=== PATIENT | female | born 1975 | race Caucasian/White ===

== ENCOUNTER 2018-04-11 20:13 | Emergency (ER) | payer MEDICAID ==
[~2018-04-11] VITALS: Ht 160 cm; Wt 89.8 kg
[2018-04-11 20:17] VITALS: Ht 160 cm; Wt 89.8 kg
[2018-04-11 22:00] VITALS: BP 133/90
== END 2018-04-11 22:00 | disposition home or self-care (01) ==
LOC: ED 20:13
DX: S61.216A Laceration without foreign body of right little finger without damage to nail, initial encounter (principal); I10 Essential (primary) hypertension; Z88.1 Allergy status to other antibiotic agents; W54.0XXA Bitten by dog, initial encounter; Y93.89 Activity, other specified; Y92.89 Other specified places as the place of occurrence of the external cause; Y99.8 Other external cause status
CPT/HCPCS: 90715; A4570

== ENCOUNTER 2018-04-21 17:51 | Emergency (ER) | payer MEDICAID ==
[~2018-04-21] VITALS: Ht 160 cm; Wt 90.3 kg
[2018-04-21 17:53] VITALS: BP 121/77; Ht 160 cm; Wt 90.3 kg
== END 2018-04-21 18:16 | disposition home or self-care (01) ==
LOC: ED 17:51
DX: S61.216D Laceration without foreign body of right little finger without damage to nail, subsequent encounter (principal); X58.XXXD Exposure to other specified factors, subsequent encounter; I10 Essential (primary) hypertension; Z88.1 Allergy status to other antibiotic agents

== ENCOUNTER 2018-05-05 16:02 | Emergency (ER) | payer MEDICAID ==
[~2018-05-05] VITALS: Ht 160 cm; Wt 88.5 kg
[2018-05-05 16:16] VITALS: BP 147/90; Ht 160 cm; Wt 88.5 kg
== END 2018-05-05 17:45 | disposition home or self-care (01) ==
LOC: ED 16:02
DX: S63.502A Unspecified sprain of left wrist, initial encounter (principal); S93.402A Sprain of unspecified ligament of left ankle, initial encounter; S16.1XXA Strain of muscle, fascia and tendon at neck level, initial encounter; I10 Essential (primary) hypertension; W17.89XA Other fall from one level to another, initial encounter; Y93.89 Activity, other specified; Y92.89 Other specified places as the place of occurrence of the external cause; Y99.8 Other external cause status; Z88.1 Allergy status to other antibiotic agents